=== PATIENT | male | born 1965 | race Two or more races ===

== ENCOUNTER 2019-05-02 22:30 | Emergency (ER) | payer OTHER ==
[~2019-05-02] VITALS: Ht 172.7 cm; Wt 74.8 kg
[2019-05-02] MEDS ORDERED: LAMISIL AF133 GM (22:39)
== END 2019-05-03 06:33 | disposition home or self-care (01) ==
LOC: ER 22:30
DX: J40 Bronchitis, not specified as acute or chronic (principal); F17.210 Nicotine dependence, cigarettes, uncomplicated